=== PATIENT | female | born 1965 | race Caucasian/White ===

== ENCOUNTER 2022-11-09 13:38 | Emergency (ER) | payer MEDICAID ==
[~2022-11-09] VITALS: Ht 160 cm; Wt 85.5 kg
[2022-11-09 14:17] VITALS: BP 138/85
[2022-11-09] MEDS ORDERED: NAPR500T6 PO (16:58)
== END 2022-11-09 17:28 | disposition home or self-care (01) ==
LOC: ER 13:38
DX: M25.532 Pain in left wrist (principal)
CPT/HCPCS: 73080; 99283; A6449